=== PATIENT | female | born 1980 | race Caucasian/White ===

== ENCOUNTER 2022-03-07 15:38 | Emergency (ER) | payer OTHER ==
[2022-03-07 15:55] VITALS: TEMP 98; BMI 22.3
[2022-03-07 18:24] LABS: BASO % 0.7 % (0-2.0); EOS % 0.8 % (0-4.5); HEMATOCRIT 31.5 % (32.4-45.2); HEMOGLOBIN 9.9 GM/dL (10.7-15.3); LYMPH % 35.7 % (8-40); MCHC 31.3 g/dl (32.0-36.0); MEAN CELL VOLUME 76.5 fl (80-96); MEAN PLT VOLUME 11.1 fl (7.5-11.1); MONO % 9.2 % (3.8-10.2); NEUT % 53.6 % (42.8-82.8); PLATELET COUNT 150 10^3/uL (134-434); RBC 4.12 M/mm3 (3.60-5.2); WHITE BLOOD COUNT 4.6 K/mm3 (4.0-10.0)
[2022-03-07 18:26] LABS: URINE APPEARANCE CLEAR; URINE BILIRUBIN NEGATIVE (NEGATIVE); URINE COLOR YELLOW; URINE GLUCOSE (UA) NEGATIVE (NEGATIVE); URINE KETONE NEGATIVE (NEGATIVE); URINE LEUK ESTERASE NEGATIVE (NEGATIVE); URINE NITRITE NEGATIVE (NEGATIVE); URINE PROTEIN NEGATIVE (NEGATIVE); URINE UROBILINOGEN 0.2 mg/dL (0.2-1.0)
[2022-03-07 18:46] LABS: INR 1.12 (0.83-1.09); PROTHROMBIN TIME (PATIENT) 12.9 SEC (9.7-13.0)
[2022-03-07 18:49] LABS: ACTIVATED PTT 31.8 SECONDS (25.2-36.5)
[2022-03-07 18:58] LABS: CALCIUM 8.3 mg/dL (8.5-10.1)
[2022-03-07 18:59] LABS: ALBUMIN 3.5 g/dl (3.4-5.0); MAGNESIUM 1.9 mg/dL (1.8-2.4)
[2022-03-07 19:04] LABS: BILIRUBIN,TOTAL 0.3 mg/dL (0.2-1); TOT PROT 6.6 g/dl (6.4-8.2)
[2022-03-07 19:28] LABS: CREATININE 0.5 mg/dL (0.55-1.3)
[2022-03-07 20:16] VITALS: BP 103/68; PULSE 73; RESP 20
== END 2022-03-07 20:16 | disposition home or self-care (01) ==
LOC: JER 15:38
DX: D50.9 Iron deficiency anemia, unspecified (principal)
CPT/HCPCS: 36415; 70450-TC; 80053; 81003; 82272; 83735; 84703; 85025; 85610; 85730; 86850; 86900; 86901; 93005; 93010; 99291